=== PATIENT | female | born 1940 | race Caucasian/White ===

== ENCOUNTER 2019-05-28 15:24 | Inpatient (IN) | payer MEDICARE ==
[~2019-05-28] VITALS: Ht 167.6 cm; Wt 63.5 kg
--- NOTE | 2019-05-28 15:38 | NUR ---
78 YEAR OLD FEMALE BIBPA FROM [facility], SENT BY PMD DUE TO INTRACTABLE LEG PAIN x 2 DAYS. ALERT AND ORIENTED X3 BREATHING EVEN AND UNLABORED WITH NO DISTRESS NOTED. LEFT LEGT PAIN 03/12. AWAITING TO BE SEEN BY
[2019-05-28] MEDS ORDERED: ONDANSETRON HCL/PF 4 MG/2 ML VIAL ONE (15:53)
[2019-05-28] MEDS ORDERED: HYDROMORPHONE 1 MG/1 ML DISP.SYRIN ONE (15:54)
[2019-05-28] MEDS ORDERED: HYDROMORPHONE 1 MG/1 ML DISP.SYRIN IV ONE (16:00)
[2019-05-28] MEDS ORDERED: ONDANSETRON HCL/PF - ER 4 MG/2 ML VIAL IV ONE (16:00)
--- NOTE | 2019-05-28 17:06 | NUR ---
[facility] PAGED
[2019-05-28 17:08] LABS: BASOPHILS % (AUTO) 0.8 % (0.0-2.0); HEMATOCRIT 41 % (33-45); HEMOGLOBIN 13.2 g/dL (11.5-14.8); LYMPHOCYTES # (AUTO) 1.6 /CMM (0.8-4.8); LYMPHOCYTES % (AUTO) 32.3 % (20.0-44.0); MEAN CORPUSCULAR HGB CONC 32 g/dl (31.0-36.0); MEAN CORPUSCULAR VOLUME 86 fL (82-100); MONOCYTES # (AUTO) 0.4 /CMM (0.1-1.30); MONOCYTES % (AUTO) 8.5 % (2.0-12.0); NEUTROPHILS # (AUTO) 2.8 /CMM (1.8-8.9); NEUTROPHILS % (AUTO) 54.4 % (43.0-81.0); PLATELET COUNT (AUTO) 167 /CMM (150-450); RED BLOOD CELL COUNT(AUTO) 4.76 MIL/uL (4.0-5.2); WHITE BLOOD COUNT (AUTO) 5.1 K/uL (4.3-11.0)
[2019-05-28] MEDS ORDERED: BENAZEPRIL (17:17)
[2019-05-28] MEDS ORDERED: ASCO500T9 PO (17:17)
[2019-05-28] MEDS ORDERED: OXYBUTYNIN (17:17)
[2019-05-28] MEDS ORDERED: QUET50TA PO (17:17)
[2019-05-28] MEDS ORDERED: TRAZ-182 PO (17:17)
[2019-05-28 17:21] LABS: CALCIUM, SERUM 8.6 mg/dL (8.5-10.1); CARBON DIOXIDE 29 mmol/L (21-32); CHLORIDE 102 mmol/L (98-107); CREATININE 0.6 mg/dL (0.6-1.3); GLUCOSE 95 mg/dL (74-106); POTASSIUM 3.8 mmol/L (3.5-5.1); SODIUM SERUM 138 mmol/L (136-145); UREA NITROGEN, BLOOD 7 mg/dL (7-18)
--- NOTE | 2019-05-28 17:34 | NUR ---
CONCHA SAINI AT BEDSIDE
--- NOTE | 2019-05-28 17:54 | NUR ---
RECIEVED BED 304-1
[2019-05-28] MEDS ORDERED: ONDANSETRON HCL/PF 4 MG/2 ML VIAL IVP PRN (18:00)
[2019-05-28] MEDS ORDERED: MAG HYDROX/AL HYDROX/SIMETH 30 ML UDC PO PRN (18:00)
[2019-05-28] MEDS ORDERED: ACETAMINOPHEN 325 MG TABLET PO PRN (18:00)
[2019-05-28] MEDS ORDERED: MORPHINE SULFATE INJ 2 MG/ML DISP.SYRIN IV PRN (18:00)
[2019-05-28] MEDS ORDERED: Z GUARD REMEDY 2 OZ OINT TP PRN (18:00)
[2019-05-28] MEDS ORDERED: MAGNESIUM HYDROXIDE 30 ML UDC PO PRN (18:00)
--- NOTE | 2019-05-28 18:13 | NUR ---
REPORT GIVEN TO JIMMIE IN 3RD FLOOR
--- NOTE | 2019-05-28 18:48 | NUR ---
RN MS NOTES Patient arrived in the department around this time. No sob noted, vital signs stable. Patient lying down on bed comfortably. Patient a/o x4. Left AC #20, patent. Patient refused her skin to be checked, but also denies that she has any wounds. Patient's bed at the lowest setting, call light within reach, rails up x2. Will give report to NOC RN for [facility] bedside.
[2019-05-28 20:00] VITALS: BP 115/68
--- NOTE | 2019-05-28 20:00 | NUR ---
MS RN NOTE: PATIENT RESTING IN BED, NO ACUTE DISTRESS NOTED. BREATHING EVEN AND UNLABORED, NO SOB NOTED. IV TO LAC IN PLACE. BED LOCKED AND IN LOWEST POSITION, CALL LIGHT IN REACH. WILL CONTINUE TO MONITOR.
[2019-05-28] MEDS: VANCOMYCIN HCL 125 MG/2.5 ML ORAL.SUSP PO SCH (20:39)
[2019-05-28] MEDS: TRAZODONE 50 MG TABLET PO SCH (21:20)
[2019-05-28] MEDS: ENOXAPARIN SODIUM 40 MG/0.4 ML DISP.SYRIN SQ SCH (21:20)
[2019-05-29] MEDS: HYDROCODONE/APAP 5/325MG 1 EACH TABLET PO PRN ×4 (00:17→23:13)
--- NOTE | 2019-05-29 00:30 | NUR ---
MS RN NOTE: PATIENT COMPLAINS OF PAIN TO BLE /, NORCO 5/325MG 1 TAB ORAL GIVEN PER MD ORDER. WILL CONTINUE TO MONITOR.
[2019-05-29] MEDS: VANCOMYCIN HCL 125 MG/2.5 ML ORAL.SUSP PO SCH ×5 (02:09→23:33)
--- NOTE | 2019-05-29 06:10 | NUR ---
MS RN NOTE: PATIENT RESTING IN BED, NO ACUTE DISTRESS NOTED. BREATHING EVEN AND UNLABORED, NO SOB NOTED. IV GOT ACCIDENTALLY PULLED OUT. NEW IV TO LFA #22 STARTED WITH GOOD BLOOD RETURN. BED LOCKED AND IN LOWEST POSITION, CALL LIGHT IN REACH. WILL ENDORSE TO DAY NURSE TO CONTINUE WITH PLAN OF CARE.
[2019-05-29 06:41] LABS: BASOPHILS # (AUTO) 0.1 /CMM (0.0-0.2); BASOPHILS % (AUTO) 1.1 % (0.0-2.0); EOSINOPHILS % (AUTO) 3.2 % (0.0-6.0); HEMATOCRIT 42 % (33-45); HEMOGLOBIN 13.9 g/dL (11.5-14.8); LYMPHOCYTES # (AUTO) 1.7 /CMM (0.8-4.8); LYMPHOCYTES % (AUTO) 31.6 % (20.0-44.0); MEAN CORPUSCULAR HGB CONC 33 g/dl (31.0-36.0); MEAN CORPUSCULAR VOLUME 84 fL (82-100); MONOCYTES # (AUTO) 0.4 /CMM (0.1-1.30); MONOCYTES % (AUTO) 6.4 % (2.0-12.0); NEUTROPHILS # (AUTO) 3.2 /CMM (1.8-8.9); NEUTROPHILS % (AUTO) 57.7 % (43.0-81.0); PLATELET COUNT (AUTO) 183 /CMM (150-450); RED BLOOD CELL COUNT(AUTO) 4.98 MIL/uL (4.0-5.2); WHITE BLOOD COUNT (AUTO) 5.5 K/uL (4.3-11.0)
[2019-05-29 06:53] LABS: CHOLESTEROL 148 mg/dL (<200); HDL CHOLESTEROL 29 mg/dL (40-60); LDL 94 mg/dL (0-99); THYROID STIMULATING HORMONE 1.072 uIU/mL (0.358-3.74); TRIGLYCERIDES 126 mg/dL (30-150)
[2019-05-29 06:57] LABS: CALCIUM, SERUM 8.7 mg/dL (8.5-10.1); CARBON DIOXIDE 31 mmol/L (21-32); CHLORIDE 102 mmol/L (98-107); CREATININE 0.6 mg/dL (0.6-1.3); GLUCOSE 91 mg/dL (74-106); MAGNESIUM 1.6 mg/dL (1.8-2.4); PHOSPHORUS 3.5 mg/dL (2.5-4.9); POTASSIUM 3.9 mmol/L (3.5-5.1); SODIUM SERUM 139 mmol/L (136-145); UREA NITROGEN, BLOOD 7 mg/dL (7-18)
--- NOTE | 2019-05-29 07:30 | NUR ---
RN RECEIVED IN BED ALERT ORIENTED X2 BREATHING W/OUT ACUTE DISTRESS ,PT DENIES PAIN , BLOOD SUGAR CHECK 155MG/DL PT ASSISTED UP IN BED SRX2 UP , WILL CONTINUE TO MONITOR Addendum: 05/29/19 at 0815 by CHRISSIE PHAN RN WRONG PATIENT PLS DISCARD
[2019-05-29 08:00] VITALS: BP 157/68
--- NOTE | 2019-05-29 08:30 | NUR ---
RECEIVED IN BED NO APPARENT DISTRESS NOTED , PT IS ALERT ORIENTED X3 SKIN IS WARM AND DRY C/O MILD PAIN BOTH LEGS , LEFT FORE ARM HEPLOCK SECURED , PT HAS INCONTENT OF URINE WILL ASSIST WITH HYGIENE , PLAN OF CARE EXPLAINED SR X2 UP CALL LIGHT WITH REACH
[2019-05-29] MEDS: ASCORBIC ACID 500 MG TABLET PO SCH (09:43)
[2019-05-29] MEDS: QUETIAPINE FUMARATE 25 MG TABLET PO SCH ×2 (09:43→16:43)
[2019-05-29] MEDS: BENAZEPRIL HCL 10 MG TABLET PO SCH (09:45)
[2019-05-29] MEDS: Magnesium 1GM/D5W 100ML PREMIX 100 ML IV SCH (12:30)
[2019-05-29 16:00] VITALS: BP 120/56
--- NOTE | 2019-05-29 18:43 | NUR ---
RN NOTE --- PATIENT REMAIN STABLE , ALL CARE GIVEN VITAL SIGN STABLE CHRYSTAL PAIN AT THIS TIME , WILL ENDORSE TO DATA CONTROL ASSISTANT
--- NOTE | 2019-05-29 19:00 | NUR ---
RN MS OPENING NOTES RECEIVED PATIENT IN BED AWAKE ALERT AND ORIENTED X2, NOTED FORGETFUL WITH EPISODES OF CONFUSION, ABLE TO MAKE SIMPLE NEEDS KNOWN, RESPIRATIONS EVEN AND UNLABORED WITH EQUAL RISE AND FALL OF CHEST, IV SITE TO LEFT FA #22 G SL , NO REDNESS, NO INFILTRATION PRESENT, DENIES ANY PAIN OR DISCOMFORT AT THIS TIME, ORIENTED TO STAFF AND CALL LIGHT AND KEPT WITHIN REACH, SAFETY PRECAUTIONS IN PLACE, LOW BED AND LOCKED, FLUIDS OFFERED, ALL NEEDS ATTENDED AT THIS TIME, WILL CONTINUE TO MONITOR AND ATTEND TO NEEDS.
[2019-05-29 20:00] VITALS: BP 131/79
--- NOTE | 2019-05-29 20:15 | NUR ---
RN MS NOTES PATIENT TRANSFERRED TO MS 2 ROOM 202-1 SAFELY , WITH BELONGINGS, CHART AND MEDICATIONS, ORIENTED TO UNIT AND CALL LIGHT, SAFETY PRECAUTIONS IN PLACE.
[2019-05-29] MEDS: TRAZODONE 50 MG TABLET PO SCH (21:50)
[2019-05-29] MEDS: ENOXAPARIN SODIUM 40 MG/0.4 ML DISP.SYRIN SQ SCH (21:52)
--- NOTE | 2019-05-29 23:13 | NUR ---
RN MS NOTES PATIENT C/O PAIN TO LEFT LEG STATES "ACHING /10" REQUESTED FOR PAIN MEDICATION, OFFERED NORCO PATIENT AGREED STATED " I WANT SOMETHING MORE THAN TYLENOL". NORCO PRN GIVEN ORDERED, VS WNL. WILL CONTINUE TO MONITOR FOR EFFECTIVENESS.
[2019-05-30] MEDS: VANCOMYCIN HCL 125 MG/2.5 ML ORAL.SUSP PO SCH ×4 (05:19→23:27)
--- NOTE | 2019-05-30 07:00 | NUR ---
RN MS CLOSING NOTES PATIENT IN BED SLEEPING BUT EASILY AROUSABLE, AWAKE ALERT AND ORIENTED X2, NOTED FORGETFUL WITH EPISODES OF CONFUSION, ABLE TO MAKE SIMPLE NEEDS KNOWN, RESPIRATIONS EVEN AND UNLABORED WITH EQUAL RISE AND FALL OF CHEST, IV SITE TO LEFT FA #22 G SL , NO REDNESS, NO INFILTRATION PRESENT, CALL LIGHT KEPT WITHIN REACH, SAFETY PRECAUTIONS IN PLACE, LOW BED AND LOCKED, FLUIDS OFFERED, FREQUENTLY REPOSITIONED, ALL NEEDS ATTENDED AT THIS TIME, WILL CONTINUE TO MONITOR AND ATTEND TO NEEDS AND ENDORSE TO NEXT SHIFT.WOUND CARE CONSULT FOR RIGHT BUTTOCKS PENDING.
--- NOTE | 2019-05-30 07:25 | NUR ---
MS/RN NOTE THE PATIENT IS RECEIVED IN BED. PATIENT AWAKE, ALERT AND ORIENTED X2. DENIES PAIN. RESPIRATION REGULAR AND UNLABORED. PATIENT IN ROOM AIR AND DENIES SOB. LFA G 22 PATENT AND SALINE LOCKED. BED LOW AND LOCKED. SIDE RAILS UP X3. CALL LIGHT WITHIN REACH. WILL CONTINUE TO MONITOR.
[2019-05-30] MEDS: HYDROCODONE/APAP 5/325MG 1 EACH TABLET PO PRN ×3 (07:54→22:49)
[2019-05-30 08:00] VITALS: BP 160/95
[2019-05-30] MEDS: QUETIAPINE FUMARATE 25 MG TABLET PO SCH ×2 (08:22→17:26)
[2019-05-30] MEDS: BENAZEPRIL HCL 10 MG TABLET PO SCH (08:22)
[2019-05-30] MEDS: ASCORBIC ACID 500 MG TABLET PO SCH (08:22)
[2019-05-30 08:24] LABS: CALCIUM, SERUM 9.3 mg/dL (8.5-10.1); CARBON DIOXIDE 28 mmol/L (21-32); CHLORIDE 100 mmol/L (98-107); CREATININE 0.8 mg/dL (0.6-1.3); GLUCOSE 88 mg/dL (74-106); POTASSIUM 4.2 mmol/L (3.5-5.1); SODIUM SERUM 138 mmol/L (136-145); UREA NITROGEN, BLOOD 7 mg/dL (7-18)
[2019-05-30 09:15] VITALS: BP 138/75
--- NOTE | 2019-05-30 18:34 | NUR ---
MS/RN NOTE THE PATIENT ALERT AND ORIENTED X2 WITH EPISODES OF CONFUSION. REDIRECTION AND REORIENTATION PROVIDED. IN ROOM AIR AND SATURATION IS AT 96%. DENIES SOB. RESPIRATION REGULAR AND UNLABORED. DENIES PAIN. LFA G 22 PATENT AND SALINE LOCKED. BED LOW AND LOCKED. SIDE RAILS UP X3. CALL LIGHT WITHIN REACH. WILL ENDORSE TO PATTERN MARKING SUPERVISOR.
--- NOTE | 2019-05-30 19:01 | NUR ---
RN MS OPENING NOTES RECEIVED PATIENT IN BED AWAKE ALERT AND ORIENTED X2, NOTED FORGETFUL WITH EPISODES OF CONFUSION, ABLE TO MAKE SIMPLE NEEDS KNOWN, RESPIRATIONS EVEN AND UNLABORED WITH EQUAL RISE AND FALL OF CHEST, IV SITE TO LEFT FA #22 G SL , NO REDNESS, NO INFILTRATION PRESENT, CALL LIGHT KEPT WITHIN REACH, SAFETY PRECAUTIONS IN PLACE, LOW BED AND LOCKED, FLUIDS OFFERED,REPOSITIONED OFFERED, ALL NEEDS ATTENDED AT THIS TIME, WILL CONTINUE TO MONITOR AND ATTEND TO NEEDS, RIGHT BUTTOCKS OFFLOADED HEELS OFFLOADED, SAFETY PRECAUTIONS IN PLACE, REMAINS COMFORTABLE AT THIS TIME.
[2019-05-30 20:00] VITALS: BP 113/68
[2019-05-30] MEDS: TRAZODONE 50 MG TABLET PO SCH (21:47)
[2019-05-30] MEDS: ENOXAPARIN SODIUM 40 MG/0.4 ML DISP.SYRIN SQ SCH (21:48)
--- NOTE | 2019-05-30 22:50 | NUR ---
rn ms notes patient complaint of pain 5/10 to ble, requested for pain medication , norco prn offered, patient agreed, vs wnl, prn norco given , patient repositioned, lights dimmed, tv on for distraction, fluids offered, will continue to monitor for effectiveness.
[2019-05-31] MEDS: VANCOMYCIN HCL 125 MG/2.5 ML ORAL.SUSP PO SCH ×3 (06:00→17:22)
--- NOTE | 2019-05-31 06:35 | NUR ---
RN MS CLOSING NOTES PATIENT IN BED AWAKE ALERT AND ORIENTED X2, NOTED FORGETFUL WITH EPISODES OF CONFUSION, ABLE TO MAKE SIMPLE NEEDS KNOWN, RESPIRATIONS EVEN AND UNLABORED WITH EQUAL RISE AND FALL OF CHEST, IV SITE TO LEFT FA #22 G SL , NO REDNESS, NO INFILTRATION PRESENT, CALL LIGHT KEPT WITHIN REACH, SAFETY PRECAUTIONS IN PLACE, LOW BED AND LOCKED, FLUIDS OFFERED,REPOSITIONED FREQUENTLY, ALL NEEDS ATTENDED AT THIS TIME, WILL CONTINUE TO MONITOR AND ATTEND TO NEEDS, RIGHT BUTTOCKS OFFLOADED, MEPILEX IN PLACE FOR SKIN MANAGEMENT AND PROTECTION, SKIN REMAINS INTACT, HEELS OFFLOADED AND INTACT, SAFETY PRECAUTIONS IN PLACE, REMAINS COMFORTABLE AT THIS TIME WILL CONTINUE TO MONITOR AND ENDORSE TO NEXT SHIFT.
--- NOTE | 2019-05-31 07:20 | NUR ---
MS/RN NOTE THE PATIENT ALERT AND ORIENTED X2. DENIES SOB. RESPIRATION REGULAR AND UNLABORED. DENIES PAIN. THE PATIENT IN NO APPARENT DISTRESS. PATIENT DENIES SI/HI. PATIENT IN NO APPARENT DISTRESS. PATIENT HAS NO IV ACCESS. BED LOW AND LOCKED. SIDE RAILS UP X3. CALL LIGHT WITHIN REACH. WILL CONTINUE TO MONITOR. Addendum: 05/31/19 at 1704 by LAMIN CRUZ RN MS/ADRIANNA NOTE WRONG PATIENT NOTE
--- NOTE | 2019-05-31 07:25 | NUR ---
MS/RN NOTE THE PATIENT IS ALERT AND ORIENTED X2. DENIES PAIN. DENIES SOB. RESPIRATION REGULAR AND UNLABORED. PATIENT IS IN ROOM AIR. LFA G 22 PATENT AND SALINE LOCKED. BED LOW AND LOCKED. SIDE RAILS UP X3. CALL LIGHT WITHIN REACH. WILL CONTINUE TO MONITOR.
[2019-05-31 08:00] VITALS: BP 154/108
[2019-05-31] MEDS: BENAZEPRIL HCL 10 MG TABLET PO SCH (08:03)
[2019-05-31] MEDS: ASCORBIC ACID 500 MG TABLET PO SCH (08:03)
[2019-05-31] MEDS: QUETIAPINE FUMARATE 25 MG TABLET PO SCH ×2 (08:03→16:16)
[2019-05-31] MEDS: HYDROCODONE/APAP 5/325MG 1 EACH TABLET PO PRN (08:06)
[2019-05-31] MEDS ORDERED: VANC125C11 PO (08:56)
[2019-05-31] MEDS ORDERED: HYDR-3972 PO (08:56)
--- NOTE | 2019-05-31 15:59 | NUR ---
MS/RN NOTE PATIENT`S BLOOD PRESSURE IS 171/96. DR MILLER IS MADE AWARE WITH NEW ORDER OF DIOVAN 160 DAILY. NOTED AND CARRIED OUT.
[2019-05-31 16:00] VITALS: BP 165/96
[2019-05-31] MEDS ORDERED: VALSARTAN 80 MG TABLET PO SCH (16:00)
[2019-05-31] MEDS ORDERED: OXYBUTYNIN PO (16:53)
[2019-05-31] MEDS ORDERED: BENAZEPRIL PO (16:53)
[2019-05-31] MEDS ORDERED: VALS160T2 PO (16:53)
[2019-05-31 17:00] VITALS: BP 143/82
--- NOTE | 2019-05-31 17:35 | NUR ---
MS/RN NOTE THE PATIENT HAD BM X1 DURING THE SHIFT THAT WAS FORMED WITH NO FOUL ODOR.
[2019-05-31 18:00] VITALS: BP 128/70
--- NOTE | 2019-05-31 18:50 | NUR ---
MS/RN NOTE THE PATIENT ALERT AND ORIENTED X2. REORIENTATION AND REDIRECTION PROVIDED NEEDED. PATIENT IN ROOM AIR AND SATURATION IS AT 97%. DENIES SOB. RESPIRATION REGULAR AND UNLABORED. DENIES PAIN. THE PATIENT IN STABLE CONDITION. LFA G 22 PATENT AND SALINE LOCKED. BED LOW AND LOCKED. SIDE RAILS UP X3. CALL LIGHT WITHIN REACH. WILL ENDORSE TO COUPON COLLECTION CLERK.
--- NOTE | 2019-05-31 19:10 | NUR ---
CHANGED OF SHIFT REPORT Patient in bed, awake A/O x2 denies pain, on RA tolerating well. Patient to be discharged today to [facility] per report. Awaiting ambulance to pick pack worker patient, family aware per CM. Fall precautions maintained.
--- NOTE | 2019-05-31 20:07 | NUR ---
DISCHARGED Patient has been cleared for discharge by MD. Report given to ambulance staff/[facility]. [facility] aware per CM. IV peripheral line removed. Personal belongings, discharge written instruction send with the patient upon dc. Patient left hosp in stable condition via Ambulance.
== END 2019-05-31 20:00 | disposition home or self-care (01) | DRG 392 ==
LOC: ER 15:30 → MED 18:17 → MEDSG2 05-29 20:15
PROVIDERS: ADMIT Nurse Practitioner Acute Care; ATTEND Nurse Practitioner Acute Care
DX: A08.4 Viral intestinal infection, unspecified (principal); M79.605 Pain in left leg; M79.604 Pain in right leg; M06.9 Rheumatoid arthritis, unspecified; I10 Essential (primary) hypertension; F03.90 Unspecified dementia, unspecified severity, without behavioral disturbance, psychotic disturbance, mood disturbance, and anxiety; Z96.653 Presence of artificial knee joint, bilateral; Z85.3 Personal history of malignant neoplasm of breast; Z87.891 Personal history of nicotine dependence
CPT/HCPCS: 36415; 73564-TC; 80048-TC; 80061-TC; 83735-TC; 84100-TC; 84443-TC; 85025-TC; 85652-TC; 86140-TC; 86431-TC; 87081-TC; 93971-TC; 97110-TC; 97116-TC; 97530-TC; G0378; J1170; J1650; J2405; J3475